=== PATIENT | female | born 1955 | race Caucasian/White ===

== ENCOUNTER 2023-11-21 16:59 | Emergency (ER) | payer OTHER, SELFPAY ==
--- NOTE | ~2023-11-21 | CT_ITS ---
EXAMINATION: CT HEAD WITHOUT IV CONTRAST, CT CERVICAL SPINE WITHOUT IV CONTRAST, CT MAXILLOFACIAL WITHOUT IV CONTRAST INDICATION INFORMATION: Fall COMPARISON: None TECHNIQUE: Separate noncontrast CT examinations of the head, face, and cervical spine were performed. Coronal and sagittal images were created for each examination at the technologist workstation. This CT examination was performed using dose optimization techniques as appropriate, variously including the following: *Automated exposure control *Adjustment of mA and/or kV according to patient size (this includes techniques or standardized protocols for targeted exams where dose is matched to indication/reason for exam; i.e. extremities or head) *Use of iterative reconstruction technique DLP: 14 15 mGy-cm FINDINGS: Head: No acute osseous or soft tissue abnormality. The mastoid air cells and visualized portions of the paranasal sinuses are well aerated. There is no evidence of acute intracranial hemorrhage or territorial infarction. No abnormal mass effect or midline shift is seen. Rincon to white matter differentiation is well preserved. No extra-axial fluid collections are identified. No hydrocephalus. No significant volume loss. Apparent parenchymal hypodensity in the posterior left cerebral hemisphere involving left occipital lobe and parieto-occipital occipital and temporo-occipital junctions Facial Bones: Right premalar soft tissue swelling. There is no evidence of an acute facial bone fracture. The paranasal sinuses are well aerated. No significant dental disease is visualized. The orbits are unremarkable in appearance. Degenerative changes of the temporomandibular joints. Cervical spine: There is no evidence of acute cervical spine fracture. Vertebral bodies remain normal in height. Cervical straightening. No significant spondylolisthesis. Multilevel degenerative disc disease, worst at C3-C4, C5-C6, and C6-C7. No pre- or paravertebral soft tissue abnormality is identified. Visualized portions of the lung apices are unremarkable. The thyroid gland is unremarkable. CT/CT cervical spine wo IV con IMPRESSION: 1. There is an apparent parenchymal hypodensity involving the posterior left cerebral hemisphere which is indeterminant and may be artifactual or represent developing acute ischemia. Correlate with neurologic symptoms. This could be further characterized with noncontrast MRI of the brain if clinically indicated 2. No acute intracranial hemorrhage, mass effect, hydrocephalus, or extra-axial collection. 3. No cervical spine fracture or traumatic malalignment. 4. No facial fracture. Above impression was communicated to EMETERIO Yates on 11/21/2023 7:36 PM Electronically signed by: Neftaly Orellana MD 11/21/2023 07:39 PM EDT
--- NOTE | ~2023-11-21 | XR_ITS ---
EXAMINATION: XR LUMBOSACRAL SPINE CLINICAL INFORMATION: Fall. COMPARISON: None available. TECHNIQUE: Three views of the lumbosacral spine. FINDINGS: Spinal alignment is anatomic in the sagittal projection. Vertebral body heights are preserved. There is near complete obliteration of the L5-S1 intervertebral disc space. There is endplate sclerosis at this level. There are marginal osteophytes throughout the lower lumbar spine. There is severe facet arthropathy at L5-S1. No acute fracture. Sacroiliac joints are intact. XR/XR lumbar spine 2-3V IMPRESSION: No acute osseous lumbar spine abnormality. There is severe degenerative disc disease at L5-S1. There is facet arthropathy at this level as well. Electronically signed by: Boston Oscar DO 11/21/2023 08:16 PM EDT
--- NOTE | ~2023-11-21 | XR_ITS ---
EXAMINATION: XR HAND/WRIST, RIGHT CLINICAL INFORMATION: Pain. Fall. Question fracture. COMPARISON: None available. TECHNIQUE: 4 radiographs of the right hand and wrist. FINDINGS: There is no fracture or dislocation. Joint spaces are maintained. Mild soft tissue swelling about the wrist. XR/XR hand wrist RT IMPRESSION: No fracture or dislocation. Mild soft tissue swelling about the wrist. Electronically signed by: Boston Oscar DO 11/21/2023 08:20 PM EDT
[2023-11-21 17:46] VITALS: BP 132/92; PULSE 57; RESP 16; TEMP 36.9; O2SAT 98; BMI 24.7
--- NOTE | 2023-11-21 17:54 | ED.GENADULT ---
HPI - General Adult General Chief complaint: Fall Stated complaint: fell on the sidewalk hit face and knees Time Seen by Provider: 11/21/23 22:13 Source: patient and family Mode of arrival: ambulatory Limitations: no limitations History of Present Illness ED Provider: Dr. Carmenza Mas HPI narrative: Patient comes to the emergency room complaining of a fall today. Patient states that she missed a step on an uneven sidewalk, and face planted. Patient states that she landed hard on her face, did not lose consciousness. Patient does not take blood thinners. Patient complaining of a bit of headache, achiness throughout her upper back, a bruise under the right eye. Otherwise, patient feels well Related Data Previous Rx's ?Medication ?Instructions ?Recorded cyclobenzaprine 10 mg tablet 10 mg PO TID PRN muscle spasm #7 11/21/23 tabs ibuprofen 600 mg tablet 600 mg PO Q8H PRN fever or pain 11/21/23 #14 tabs Allergies Allergy/AdvReac Type Severity Reaction Status Date / Time No Known Allergies Allergy Verified 11/21/23 17:46 Review of Systems Review of Systems: Constitutional : No Weight loss, No Fever, No Chills, No Night Sweats, No Fatigue, No Malaise ENT/Mouth : No Hearing loss, No Ear Pain, No Nasal Congestion, No Sinus Pain, No Hoarseness, No sore throat, No Rhinorrhea, No Swallowing Difficulty Eyes: No Eye Pain, No Swelling, No Redness, No Foreign Body, No Discharge, No Vision Changes Cardiovascular : No Chest Pain, No SOB, No Dyspnea on Exertion, No Orthopnea, No Edema, No Palpitations Respiratory : No Cough, No Sputum, No Wheezing, No Smoke Exposure, No Dyspnea Gastrointestinal : No Nausea, No Vomiting, No Diarrhea, No Constipation, No abdominal Pain, No Hematochezia, No Melena Genitourinary : no irregular bleeding, No Dysuria, No Urinary Frequency, No Hematuria, No Urinary Incontinence, No Urgency, No Flank Pain, No Urinary Flow Changes, No Hesitancy Musculoskeletal : Complaining of musculoskeletal pain in upper back, right wrist Skin : Ecchymosis on the face from falling Neuro : No Weakness, No Numbness, No Paresthesias, No Loss of Consciousness, mild headache, a bit foggy Psych : No Anxiety/Panic, No Depression, No SI/HI/AH/VH, No Social Issues, Heme/Lymph: No Bruising, No Bleeding,No Lymphadenopathy Endocrine : No Polyuria, No Polydipsia, No Temperature Intolerance [facility] Past Medical History Medical History (Updated 11/22/23 @ 00:01 by Background Daemon) Hyperlipidemia Social History Social History Advance Directives: No Advance Directives Information Provided: No Do you have a plan to hurt others: No Plan Physical Exam ED Vital Signs: Vital Signs - 24 hr 11/21/23 17:46 11/21/23 22:51 11/21/23 23:02 Temperature 98.5 F 97.8 F 97.8 F Pulse Rate 57 60 60 Respiratory Rate 16 18 18 Blood Pressure 132/92 H 124/71 124/71 Pulse Oximetry 98 94 94 Oxygen Delivery Method Room Air Room Air Room Air BMI result Body Mass Index 24.7 Const Other: Appearance: Alert. Oriented X3. No acute distress. Eyes: Pupils equal, round and reactive to light. ENT: Pharynx normal. Mild Ecchymosis under the right eye, normal eye movements Neck: Normal inspection. Neck supple. No lymph nodes noted. No crepitus CVS: Normal heart rate and rhythm. Pulses normal. Normal S1 and S2 Respiratory: No respiratory distress. Breath sounds normal. No Wheezing. No rales Abdomen: Soft and nontender. No rigidity. No distention. Skin: Skin warm and dry. Normal skin color. Normal skin turgor. Extremities: No lower extremity edema. No Lacerations. No Rash. Able to flex and extend the wrists elbows bilaterally, flex and extend all fingers on the hand Neuro: Oriented X 3. No motor deficit. No sensory deficit. Moving all extremities. No slurred speech. CN 2 through 12 grossly intact Psych: calm, cooperative, normal affect NIH Stroke Scale Internal: Initial- Upon Arrival Level of Consciousness: Alert Level of Consciousness Questions: Answers both questions correctly Level of Consciousness Commands: Performs both tasks correctly Best Gaze: Normal Visual: No visual loss Facial Palsy: Normal Motor Arm (Right): No drift Motor Arm (Left): No drift Motor Leg (Right): No drift Motor Leg (Left): No drift Limb Ataxia: Absent Sensory: Normal Best Language: No aphasia Dysarthia: Normal Extinction and Inattention: No abnormality Score: 0 Course Course Course Narrative: RME: 68-year-old female presents to ED for fall. Patient states she tripped and fell and hit the right side of the face. Patient states head and neck right orbital pain. Patient denies any loss of consciousness. Imaging ordered. Medical Decision Making Medical Decision Making MDM Narrative: My interpretation of x-ray of the hand/wrist: No obvious abnormality. Lumbar spine: No obvious fracture. CT scan of the head cervical spine and face: No obvious abnormality. However, radiology reports mentions a hypodensity involving the posterior left cerebral hemisphere, artifact versus developing acute ischemia. -I had a prolonged conversation with the patient and her daughter. Patient does not have any neurological symptoms that would imply that patient had an acute stroke. The family reports that for several months, patient has had head bobbing that is more pronounced when patient visits [place] but gets much better when she returns to [place], seems to be stress induced. Other than that, patient has not had any neurological deficits to suspect a stroke. Patient states she has history of hyperlipidemia and is already taking atorvastatin -at this time, there is no indication that this may have been a stroke. However, I discussed with the patient to share this information with her PCP. Patient was given a printout of the radiology reports. -patient is feels comfortable discharge, patient adamant that she did not have any neurological deficits or symptoms -patient's NIH score is 0 -I discussed with the patient her daughter, that given the constellation of symptoms, patient likely has a concussion Differential Diagnosis Differential Diagnoses: The differential diagnosis associated with the presentation includes (Mechanical fall, contusion, concussion) Independent Interpretation I performed an independent interpretation of an: Plain X-Ray and CT Scan Radiology Impression Discussion of test interpretation with radiology: I have reviewed the radiologist's reading. Radiologist Impression: Head: No acute osseous or soft tissue abnormality. The mastoid air cells and visualized portions of the paranasal sinuses are well aerated. There is no evidence of acute intracranial hemorrhage or territorial infarction. No abnormal mass effect or midline shift is seen. Rincon to white matter differentiation is well preserved. No extra-axial fluid collections are identified. No hydrocephalus. No significant volume loss. Apparent parenchymal hypodensity in the posterior left cerebral hemisphere involving left occipital lobe and parieto-occipital occipital and temporo-occipital junctions Facial Bones: Right premalar soft tissue swelling. There is no evidence of an acute facial bone fracture. The paranasal sinuses are well aerated. No significant dental disease is visualized. The orbits are unremarkable in appearance. Degenerative changes of the temporomandibular joints. Cervical spine: There is no evidence of acute cervical spine fracture. Vertebral bodies remain normal in height. Cervical straightening. No significant spondylolisthesis. Multilevel degenerative disc disease, worst at C3-C4, C5-C6, and C6-C7. No pre- or paravertebral soft tissue abnormality is identified. Visualized portions of the lung apices are unremarkable. The thyroid gland is unremarkable. CT/CT head/brain wo IV con IMPRESSION: 1. There is an apparent parenchymal hypodensity involving the posterior left cerebral hemisphere which is indeterminant and may be artifactual or represent developing acute ischemia. Correlate with neurologic symptoms. This could be further characterized with noncontrast MRI of the brain if clinically indicated 2. No acute intracranial hemorrhage, mass effect, hydrocephalus, or extra-axial collection. 3. No cervical spine fracture or traumatic malalignment. 4. No facial fracture. Above impression was communicated to EMETERIO Yates on 11/21/2023 7:36 PM There is no fracture or dislocation. Joint spaces are maintained. Mild soft tissue swelling about the wrist. XR/XR hand wrist RT IMPRESSION: No fracture or dislocation. Mild soft tissue swelling about the wrist. Spinal alignment is anatomic in the sagittal projection. Vertebral body heights are preserved. There is near complete obliteration of the L5-S1 intervertebral disc space. There is endplate sclerosis at this level. There are marginal osteophytes throughout the lower lumbar spine. There is severe facet arthropathy at L5-S1. No acute fracture. Sacroiliac joints are intact. XR/XR lumbar spine 2-3V IMPRESSION: No acute osseous lumbar spine abnormality. There is severe degenerative disc disease at L5-S1. There is facet arthropathy at this level as well. Independent Historian Clinical information obtained from an independent historian. History obtained from or confirmed by: Other (Patient's daughter) Critical Care Time Critical Care Time Critical Care Time: Yes Total Critical Care Time: 60 Attestation: I have personally provided critical care time. Time includes review of lab data, radiology results, discussion with consultants, and monitoring for potential decompensation. Intervention performed as documented. Discharge Plan Discharge Clinical Impression: Fall, Contusion, Concussion Patient Disposition: Home, Self-Care Instructions: Concussion (ED), Contusion in Adults (ED) Additional Instructions: Please follow-up with your primary care physician tomorrow. If you have any worsening or new symptoms, please return to the emergency room or call 911 Prescriptions: New ibuprofen 600 mg tablet 600 mg PO Q8H PRN (Reason: fever or pain) Qty: 14 0RF cyclobenzaprine 10 mg tablet 10 mg PO TID PRN (Reason: muscle spasm) Qty: 7 0RF Stand Alone Forms: Work/School Release Interventions: ED Discharge Assessment Last Done: 11/21/23 23:02 Discharge Date/Time: 11/21/23 23:02 Print Language: Slovenian
[2023-11-21 22:51] VITALS: BP 124/71; PULSE 60; RESP 18; TEMP 36.6; O2SAT 94
[2023-11-21 23:02] VITALS: BP 124/71; PULSE 60; RESP 18; TEMP 36.6; O2SAT 94
== END 2023-11-21 23:02 | disposition home or self-care (01) ==
PROVIDERS: Emergency Provider Emergency Medicine
DX: S06.0X0A Concussion without loss of consciousness, initial encounter (principal); S09.93XA Unspecified injury of face, initial encounter; S00.11XA Contusion of right eyelid and periocular area, initial encounter; M54.50 Low back pain, unspecified; M54.2 Cervicalgia; M25.531 Pain in right wrist; M79.641 Pain in right hand; W01.10XA Fall on same level from slipping, tripping and stumbling with subsequent striking against unspecified object, initial encounter; Y93.89 Activity, other specified; Y92.480 Sidewalk as the place of occurrence of the external cause; Y99.8 Other external cause status
CPT/HCPCS: 70450; 70486; 72100; 72125; 73110; 73130; 99283; 99284